=== PATIENT | male | born 1965 | race Caucasian/White ===

== ENCOUNTER 2016-10-20 17:46 | Inpatient (IN) | payer BC ==
[~2016-10-20] VITALS: Ht 188 cm; Wt 79.4 kg
[~2016-10-20 17:46] MED LIST: LEVAQUIN500 MG ORAL; PROMETHAZINE-C118 M1 ORAL
[2016-10-20] MEDS ORDERED: NKM (18:12)
--- NOTE | 2016-10-20 18:24 | Emergency Room Report ---
History of Present Illness General Chief Complaint: Abdominal Pain Source: Patient, Medical Record Present Illness HPI This is a 51-year-old male presented after increased lower abdominal pain for one day. Patient said that he had increased pain which is worse with ambulation and coughing. The patient had increased somewhat dysuria . The patient reports having some constipation for the past one week. Patient denied any vomiting. He denied any fever he reports having a good appetite. He states he last ate or drank approximately 3 hours prior to arrival. Allergies: Coded Allergies: BENZALKONIUM CHLORIDE (Verified Allergy, Unknown, 08/21/15) BIMATOPROST (Verified Allergy, Unknown, 08/21/15) TIMOLOL (Verified Allergy, Unknown, 08/21/15) TRAVOPROST (Verified Allergy, Unknown, 08/21/15) Uncoded Allergies: COMBZAN (Allergy, Unknown, 08/21/15) Patient History Past Medical History: see triage record Reviewed Nursing Documentation: PMH: Agreed, PSxH: Agreed Nursing Documentation-PMH Past Medical History: No History, Except For Hx Hypertension: No Hx Pacemaker: No Hx Asthma: No Hx COPD: No Hx Diabetes: No Hx Cancer: No Hx Gastrointestinal Problems: No Hx Dialysis: No Hx Neurological Problems: No Hx Cerebrovascular Accident: No Hx Seizures: No Review of Systems All Other Systems: negative except mentioned in HPI Physical Exam Vital Signs Date Time Temp Pulse Resp B/P Pulse Ox O2 Delivery O2 Flow Rate FiO2 10/20/16 18:06 97.3 105 16 141/96 99 Room Air Sp02 EP Interpretation: reviewed, normal General Appearance: normal inspection, well appearing, no apparent distress, alert, GCS 15 Head: atraumatic ENT: normal ENT inspection, hearing grossly normal, normal voice Neck: normal inspection, full range of motion, supple, no bony tend Respiratory: normal inspection, lungs clear, normal breath sounds, no respiratory distress, no retraction, no wheezing Cardiovascular #1: regular rate, rhythm, no edema Gastrointestinal: normal inspection, normal bowel sounds, soft, no guarding, no hernia, guarding, rebound, tenderness Genitourinary: no CVA tenderness Musculoskeletal: normal inspection, back normal, normal range of motion Neurologic: normal inspection, alert, oriented x3, responsive, 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 Differential diagnoses included ischemic bowel, appendicitis, perforated viscus, abdominal aortic aneurysm, inferior myocardial infarction, viral gastroenteritis Because of complexity of patient's case laboratory testing and imaging studies were ordered. The patient recently taken meloxicam without any improvement in the pain. The patient noted have exam consistent with appendicitis. CT imaging was ordered. Ct of abdomen and pelvis read by radiology showed no evidence of appendicitis.The patient was noted to have evidence of diverticulitis as well as right-sided sigmoid colonPatient was given IV antibiotics as well as IV fluids. Dr. Huber was contacted for inpatient management due to complexity of medical condition. Labs Test 10/20/16 18:24 White Blood Count 13.6 K/UL (4.8-10.8) Red Blood Count 4.34 M/UL (4.70-6.10) Hemoglobin 15.6 G/DL (14.2-18.0) Hematocrit 42.9 % (42.0-52.0) Mean Corpuscular Volume 99 FL (80-99) Mean Corpuscular Hemoglobin 36.0 PG (27.0-31.0) Mean Corpuscular Hemoglobin Concent 36.4 G/DL (32.0-36.0) Red Cell Distribution Width 11.0 % (11.6-14.8) Platelet Count 234 K/UL (150-450) Mean Platelet Volume 6.9 FL (6.5-10.1) Neutrophils (%) (Auto) 73.4 % (45.0-75.0) Lymphocytes (%) (Auto) 14.2 % (20.0-45.0) Monocytes (%) (Auto) 9.9 % (1.0-10.0) Eosinophils (%) (Auto) 1.9 % (0.0-3.0) Basophils (%) (Auto) 0.7 % (0.0-2.0) Prothrombin Time 10.0 SEC (9.30-11.50) Prothromb Time International Ratio 1.0 (0.9-1.1) Activated Partial Thromboplast Time 31 SEC (23-33) Urine Color Pale yellow Urine Appearance Clear Urine pH 7 (4.5-8.0) Urine Specific [place] 1.010 (1.005-1.035) Urine Protein Negative (NEGATIVE) Urine Glucose (UA) Negative (NEGATIVE) Urine Ketones Negative (NEGATIVE) Urine Occult Blood Negative (NEGATIVE) Urine Nitrite Negative (NEGATIVE) Urine Bilirubin Negative (NEGATIVE) Urine Urobilinogen Normal MG/DL (0.0-1.0) Urine Leukocyte Esterase Negative (NEGATIVE) Sodium Level 135 mEQ/L (135-145) Potassium Level 3.7 mEQ/L (3.4-4.9) Chloride Level 94 mEQ/L (98-107) Carbon Dioxide Level 28 mEQ/L (20-30) Anion Gap 13 (5-15) Blood Urea Nitrogen 11 mg/dL (7-23) Creatinine 0.9 mg/dL (0.7-1.2) Estimat Glomerular Filtration Rate > 60 mL/min (>60) Glucose Level 90 mg/dL (74-106) Calcium Level 9.4 mg/dL (8.6-10.2) Total Bilirubin 0.6 mg/dL (0.0-1.2) Aspartate Amino Transf (AST/SGOT) 15 U/L (5-40) Alanine Aminotransferase (ALT/SGPT) 18 U/L (3-41) Alkaline Phosphatase 62 U/L (40-129) Total Protein 7.2 g/dL (6.6-8.7) Albumin 4.1 g/dL (3.5-5.2) Globulin 3.1 g/dL Albumin/Globulin Ratio 1.3 (1.0-2.7) Lipase 22 U/L (< 60) Last Vital Signs Date Time Temp Pulse Resp B/P Pulse Ox O2 Delivery O2 Flow Rate FiO2 10/20/16 18:06 97.3 105 16 141/96 99 Room Air Status: unchanged Disposition: ADMITTED INPATIENT Condition: Serious Willie Sheridan October 20, 2016 18:24
[2016-10-20] MEDS ORDERED: Ampicillin/Sulbactam Sod 3 GM in NS 110 ML IVPB ONE (18:30)
[2016-10-20] MEDS ORDERED: Morphine Sulfate 4mg/ml Inj IVP ONE (18:30)
[2016-10-20 18:48] VITALS: BP 146/99
[2016-10-20 18:52] LABS: BASOPHILS % (AUTO) 0.7 % (0.0-2.0); EOSINOPHILS % (AUTO) 1.9 % (0.0-3.0); LYMPHOCYTES % (AUTO) 14.2 % (20.0-45.0); MEAN CORPUSCULAR HGB CONC 36.4 G/DL (32.0-36.0); MEAN CORPUSCULAR VOLUME 99 FL (80-99); MEAN PLATELET VOLUME 6.9 FL (6.5-10.1); MONOCYTES % (AUTO) 9.9 % (1.0-10.0); NEUTROPHILS % (AUTO) 73.4 % (45.0-75.0); PLATELET COUNT 234 K/UL (150-450); RED BLOOD COUNT 4.34 M/UL (4.70-6.10); WHITE BLOOD COUNT 13.6 K/UL (4.8-10.8)
[2016-10-20 18:53] LABS: APPEARANCE,URINE CLEAR; KETONES,URINE NEGATIVE (NEGATIVE); LEUKOCYTE ESTERASE ,URINE NEGATIVE (NEGATIVE); NITRITE,URINE NEGATIVE (NEGATIVE); PH,URINE 7 (4.5-8.0); PROTEIN,URINE NEGATIVE (NEGATIVE); UROBILINOGEN,URINE NORMAL MG/DL (0.0-1.0)
[2016-10-20 19:05] LABS: ALANINE AMINOTRANSFERASE 18 U/L (3-41); ALBUMIN/GLOBULIN RATIO 1.3 (1.0-2.7); ANION GAP 13 (5-15); ASPARTATE AMINO TRANSFERASE 15 U/L (5-40); CALCIUM 9.4 mg/dL (8.6-10.2); CARBON DIOXIDE 28 mEQ/L (20-30); CHLORIDE 94 mEQ/L (98-107); CREATININE 0.9 mg/dL (0.7-1.2); GLOMERULAR FILTRATION RATE > 60 mL/min (>60); HEMOLYSIS 8; LIPASE 22 U/L (< 60); POTASSIUM 3.7 mEQ/L (3.4-4.9); SODIUM 135 mEQ/L (135-145); TOTAL PROTEIN 7.2 g/dL (6.6-8.7)
[2016-10-20] MEDS ORDERED: Unasyn 3gm Inj ONE (19:57)
[2016-10-20 20:03] VITALS: BP 139/93
[2016-10-20] MEDS ORDERED: ACETAMINOPHEN-1 EAC1 ORAL (20:14)
[2016-10-20] MEDS ORDERED: MELOXICAM15 MG PO (20:14)
[2016-10-20] MEDS ORDERED: EMERGEN-C 1,01000 MG PO (20:14)
[2016-10-20] MEDS ORDERED: COSOPT PF EYE1 EAC1 OP (20:14)
[2016-10-20] MEDS ORDERED: ZIOPTAN 0.00151 EACH OP (20:14)
[2016-10-20] MEDS ORDERED: TYLENOL325 MG ORAL (20:20)
[2016-10-20] MEDS ORDERED: Nitroglycerin Subl 0.4mg tab (Bottle Of 25) SL PRN (21:45)
[2016-10-20] MEDS ORDERED: Mylanta II UD 30ml ORAL PRN (21:45)
[2016-10-20] MEDS ORDERED: Miralax 17gm pkt ORAL PRN (21:45)
[2016-10-20 22:06] VITALS: BP 140/80
[2016-10-20 22:31] VITALS: BP 136/87
[2016-10-20] MEDS: Morphine Sulfate 2mg/ml Inj IVP PRN (22:37)
[2016-10-20] MEDS: D5 1/2NS 1,000 ML IV SCH (23:41)
[2016-10-21] VITALS (7 sets, daily range): BP systolic 125–136; BP diastolic 80–86
[2016-10-21] MEDS: Piperacillin/Tazobactam 3.375 GM in D5W 110 ML IVPB SCH ×3 (01:30→18:15)
[2016-10-21] MEDS: Morphine Sulfate 2mg/ml Inj IVP PRN ×3 (04:41→22:17)
[2016-10-21 06:14] LABS: MEAN CORPUSCULAR HEMOGLOBIN 33.5 PG (27.0-31.0); MEAN CORPUSCULAR HGB CONC 34.3 G/DL (32.0-36.0); MEAN CORPUSCULAR VOLUME 98 FL (80-99); MEAN PLATELET VOLUME 6.9 FL (6.5-10.1); PLATELET COUNT 231 K/UL (150-450); RED BLOOD COUNT 4.38 M/UL (4.70-6.10); RED CELL DISTRIBUTION WIDTH 11.2 % (11.6-14.8); WHITE BLOOD COUNT 12.8 K/UL (4.8-10.8)
[2016-10-21 06:39] LABS: ALANINE AMINOTRANSFERASE 17 U/L (3-41); ALBUMIN/GLOBULIN RATIO 1.2 (1.0-2.7); AMYLASE 31 U/L (10-110); ANION GAP 13 (5-15); ASPARTATE AMINO TRANSFERASE 16 U/L (5-40); CARBON DIOXIDE 28 mEQ/L (20-30); CHLORIDE 95 mEQ/L (98-107); CREATININE 0.9 mg/dL (0.7-1.2); GLOMERULAR FILTRATION RATE > 60 mL/min (>60); HEMOLYSIS 4; LIPASE 21 U/L (< 60); POTASSIUM 3.8 mEQ/L (3.4-4.9); SODIUM 136 mEQ/L (135-145); TOTAL PROTEIN 6.7 g/dL (6.6-8.7)
[2016-10-21 07:05] LABS: BILIRUBIN,DIRECT 0.2 mg/dL (0.1-0.3)
[2016-10-21] MEDS ORDERED: Pantoprazole Inj IVP SCH (09:00)
--- NOTE | 2016-10-21 09:05 | Diagnostic Imaging Report ---
Indication: Chest pain Technique: Single portable AP view of the chest. Findings: Comparison: 08/21/2015 The bones and extra pulmonary soft tissues, cardiomediastinal silhouette, pulmonary vasculature and parenchyma, and pleural surfaces remain unremarkable. IMPRESSION: Negative portable AP chest, unchanged.
--- NOTE | 2016-10-21 09:05 | Diagnostic Imaging Report ---
Indications: Right lower quadrant abdominal pain Technique: Continuous helical CT imaging of the abdomen and pelvis was performed with automatic exposure control following administration of nonionic IV contrast only, on a Siemens sensation [address] scanner. Axial, coronal, sagittal images were reconstructed at 5 mm slice thickness. No oral contrast was administered per requesting physician's order, despite no contraindications listed in either submitted clinical data or tech note.. CTDI volume(s): 17 mGy Total DLP: 970 mGy-cm Findings: Comparison: None Lack of oral contrast limits evaluation of gastrointestinal tract, nondilated throughout. Appendix unremarkable. The sigmoid colon is redundant, extending anterior to the cecum and ascending colon. This segment demonstrates multiple diverticula, circumferential mural thickening, and significant surrounding mesenteric stranding. No extraluminal gas or fluid collections identified. Gallbladder absent. Surgical clips in gallbladder fossa. Bile ducts mildly prominent to level of ampulla of Vater apparently inserted within a 2.5 cm gas and fluid-filled duodenal diverticulum. Small circumscribed low attenuation foci in both renal cortices. Scattered arterial mural calcifications without obvious flow-limiting stenosis or occlusion. Apparent mild thickening of urinary bladder wall. Liver parenchyma, pancreas, spleen, adrenal glands, unopacified ureters, prostate, seminal vesicles, retroperitoneum, remainder of the mesentery, remainder visualized abdominopelvic anatomy unremarkable. Small irregular pleural-based linear densities and dependent portions of both lung bases. Small disc marginal osteophytes and lumbar spine. IMPRESSION: Findings compatible with acute diverticulitis of redundant sigmoid colon in the right lower quadrant. No evidence of associated obstruction, perforation, or abscess. No evidence of acute appendicitis. No other evidence of acute abdominopelvic disease, with limitation as described. Subtle but potentially significant abnormalities the gastrointestinal tract may be missed. Repeat CT scan with full oral and IV contrast preparation recommended for more complete evaluation, as clinically indicated Mild bilateral prominence likely secondary to previous cholecystectomy. Correlate clinically. Duodenal diverticulum Low-attenuation foci probably but not definitely cysts. Ultrasound correlation suggested. Apparent mild thickening of urinary bladder wall-underdistention versus hypertrophy versus cystitis Minimal pulmonary bibasal subsegmental atelectasis Mild degenerative spondylosis Findings discussed with Dr. Sheridan, ER physician, by telephone and written preliminary report placed in PACS oct 20 [id number]
[2016-10-21] MEDS: D5 1/2NS 1,000 ML IV SCH ×2 (11:20→22:48)
--- NOTE | 2016-10-21 15:10 | History and Physical ---
History of Present Illness General Date patient seen: October 21, 2016 Time patient seen: 14:30 Reason for Hospitalization: Abdominal Pain Present Illness HPI 51-year-old male without any significant PMH presented with lower abdominal pain for one day. pain worse with cough and ambulation pain described as cramping, colicky 7/10 on a scale 1 to 10, patient never had this pain before reported having constipation for one week. denied n/v/ no blood in stool, no black stools no fevers, chills workup in ED revealed leukocytosis -WBC-13.6 stable HH, lytes, LFT CT A/P revealed findings compatible with acute diverticulitis of redundant sigmoid colon in the right lower quadrant. No evidence of associated obstruction, perforation, or abscess. No evidence of acute appendicitis. No other evidence of acute abdominopelvic disease patient was admitted for further management Allergies: Coded Allergies: BENZALKONIUM CHLORIDE (Verified Allergy, Unknown, 08/21/15) BIMATOPROST (Verified Allergy, Unknown, 08/21/15) TIMOLOL (Verified Allergy, Unknown, 08/21/15) TRAVOPROST (Verified Allergy, Unknown, 08/21/15) Uncoded Allergies: COMBZAN (Allergy, Unknown, 08/21/15) Medication History Scheduled Dorzolamide/Timolol/Pf (Cosopt Pf Eye Drops), 1 EACH OP BID, (Reported) Meloxicam* (Meloxicam*), 15 MG PO DAILY, (Reported) Tafluprost/Pf (Zioptan 0.0015% Eye Drops), 1 EACH OP BEDTIME, (Reported) Scheduled PRN Acetaminophen (Tylenol), 325 MG ORAL Q6H PRN for Prn Pain/Headache/Temp > 101, ( Reported) Miscellaneous Medications Ascorbic Acid/Multivit-Min (Emergen-C 1,000 mg Packet), 1,000 MG PO, (Reported) Discontinued Medications Acetaminophen With Codeine (T#3) (Tylenol #3 Tab*), 2 TAB ORAL Q6H PRN for For Pain, (Reported) Discontinued Reason: Prescription changed Codeine/Promethazine Hcl* (Promethazine-Codeine Syrup*), 5 ML ORAL Q4H PRN for For Cough Discontinued Reason: Pt stopped taking med Levofloxacin* (Levaquin*), 500 MG ORAL DAILY Discontinued Reason: Pt stopped taking med No Known Medications* (NKM - No Known Medications*), 0 ., (Reported) Discontinued Reason: Pt stopped taking med Patient History History Provided By: Patient Healthcare decision maker NONE Resuscitation status Advanced Directive on File Review of Systems Constitutional: Reports: no symptoms Eye: Reports: other - hx glaucoma L eye ENT: Reports: hearing loss - hearing aide L ear, no symptoms Respiratory: Reports: no symptoms Cardiovascular: Reports: no symptoms Gastrointestinal: Reports: see HPI Genitourinary: Reports: no symptoms Musculoskeletal: Reports: no symptoms, other - hx of sciatica, s/p epiduaral injection Skin: Reports: no symptoms Neurological: Reports: no symptoms Endocrine: Reports: no symptoms Hematologic/Lymphatic: Reports: no symptoms Physical Exam General Appearance: WD/WN, no apparent distress, alert - A/A/O x 4 Lines, tubes and drains: peripheral HEENT: normocephalic, atraumatic, anicteric, other - decreased hearing left Neck: non-tender, supple, normal inspection Respiratory/Chest: lungs clear, no respiratory distress, no accessory muscle use Cardiovascular/Chest: normal peripheral pulses, normal rate, no JVD Abdomen: normal bowel sounds - TTP RLQ, soft Extremities: normal range of motion, non-tender, no calf tenderness, normal capillary refill Neurologic: 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 II-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 grossly normal, no motor/sensory deficits, alert, oriented x 3, responsive, normal mood/affect Musculoskeletal: normal muscle bulk Last 24 Hour Vital Signs Date Time Temp Pulse Resp B/P Pulse Ox O2 Delivery O2 Flow Rate FiO2 10/21/16 12:24 98.4 110 126/84 96 Room Air 10/21/16 12:00 98.4 10/21/16 10:38 101.8 10/21/16 10:09 100 20 134/84 96 Room Air 10/21/16 05:11 98.1 10/21/16 05:02 98.1 91 20 136/86 98 Room Air 10/21/16 04:10 98.1 91 20 136/86 98 Room Air 10/21/16 00:08 98.8 101 20 128/80 96 Room Air 10/20/16 22:31 97.7 100 20 136/87 97 Room Air 10/20/16 22:10 96 18 140/80 99 Room Air 10/20/16 22:06 97.8 96 18 140/80 99 Room Air 10/20/16 20:03 97.6 91 16 139/93 100 Room Air 10/20/16 19:02 97.6 10/20/16 18:48 97.3 93 16 146/99 99 Room Air 10/20/16 18:06 97.3 105 16 141/96 99 Room Air Intake and Output 10/20/16 10/21/16 19:00 07:00 Intake Total 535.0 ml Balance 535.0 ml Intake IV Total 535.0 ml # Voids 1 2 Laboratory Tests Test 10/20/16 18:24 10/21/16 04:50 White Blood Count 13.6 K/UL (4.8-10.8) H 12.8 K/UL (4.8-10.8) H Red Blood Count 4.34 M/UL (4.70-6.10) L 4.38 M/UL (4.70-6.10) L Hemoglobin 15.6 G/DL (14.2-18.0) 14.7 G/DL (14.2-18.0) Hematocrit 42.9 % (42.0-52.0) 42.9 % (42.0-52.0) Mean Corpuscular Volume 99 FL (80-99) 98 FL (80-99) Mean Corpuscular Hemoglobin 36.0 PG (27.0-31.0) H 33.5 PG (27.0-31.0) H Mean Corpuscular Hemoglobin Concent 36.4 G/DL (32.0-36.0) H 34.3 G/DL (32.0-36.0) Red Cell Distribution Width 11.0 % (11.6-14.8) L 11.2 % (11.6-14.8) L Platelet Count 234 K/UL (150-450) 231 K/UL (150-450) Mean Platelet Volume 6.9 FL (6.5-10.1) 6.9 FL (6.5-10.1) Neutrophils (%) (Auto) 73.4 % (45.0-75.0) % (45.0-75.0) Lymphocytes (%) (Auto) 14.2 % (20.0-45.0) L % (20.0-45.0) Monocytes (%) (Auto) 9.9 % (1.0-10.0) % (1.0-10.0) Eosinophils (%) (Auto) 1.9 % (0.0-3.0) % (0.0-3.0) Basophils (%) (Auto) 0.7 % (0.0-2.0) % (0.0-2.0) Prothrombin Time 10.0 SEC (9.30-11.50) Prothromb Time International Ratio 1.0 (0.9-1.1) Activated Partial Thromboplast Time 31 SEC (23-33) 32 SEC (23-33) Urine Color Pale yellow Urine Appearance Clear Urine pH 7 (4.5-8.0) Urine Specific [place] 1.010 (1.005-1.035) Urine Protein Negative (NEGATIVE) Urine Glucose (UA) Negative (NEGATIVE) Urine Ketones Negative (NEGATIVE) Urine Occult Blood Negative (NEGATIVE) Urine Nitrite Negative (NEGATIVE) Urine Bilirubin Negative (NEGATIVE) Urine Urobilinogen Normal MG/DL (0.0-1.0) Urine Leukocyte Esterase Negative (NEGATIVE) Sodium Level 135 mEQ/L (135-145) 136 mEQ/L (135-145) Potassium Level 3.7 mEQ/L (3.4-4.9) 3.8 mEQ/L (3.4-4.9) Chloride Level 94 mEQ/L (98-107) L 95 mEQ/L (98-107) L Carbon Dioxide Level 28 mEQ/L (20-30) 28 mEQ/L (20-30) Anion Gap 13 (5-15) 13 (5-15) Blood Urea Nitrogen 11 mg/dL (7-23) 7 mg/dL (7-23) Creatinine 0.9 mg/dL (0.7-1.2) 0.9 mg/dL (0.7-1.2) Estimat Glomerular Filtration Rate > 60 mL/min (>60) > 60 mL/min (>60) Glucose Level 90 mg/dL (74-106) 118 mg/dL (74-106) H Calcium Level 9.4 mg/dL (8.6-10.2) 9.0 mg/dL (8.6-10.2) Total Bilirubin 0.6 mg/dL (0.0-1.2) 1.2 mg/dL (0.0-1.2) Aspartate Amino Transf (AST/SGOT) 15 U/L (5-40) 16 U/L (5-40) Alanine Aminotransferase (ALT/SGPT) 18 U/L (3-41) 17 U/L (3-41) Alkaline Phosphatase 62 U/L (40-129) 61 U/L (40-129) Total Protein 7.2 g/dL (6.6-8.7) 6.7 g/dL (6.6-8.7) Albumin 4.1 g/dL (3.5-5.2) 3.7 g/dL (3.5-5.2) Globulin 3.1 g/dL 3.0 g/dL Albumin/Globulin Ratio 1.3 (1.0-2.7) 1.2 (1.0-2.7) Lipase 22 U/L (< 60) 21 U/L (< 60) Direct Bilirubin 0.2 mg/dL (0.1-0.3) Amylase Level 31 U/L (10-110) Height (Feet): 6 Height (Inches): 2.00 Weight (Pounds): 175 Medications Current Medications Medications (Trade) Dose Ordered Sig/Julia Route PRN Reason Start Time Stop Time Status Last Admin Dose Admin Acetaminophen (Tylenol) 650 mg Q4H PRN ORAL fever 10/20/16 21:45 11/19/16 21:44 10/21/16 10:43 Al Hydroxide/Mg Hydroxide (Mylanta II) 30 ml Q6H PRN ORAL dyspepsia 10/20/16 21:45 11/19/16 21:44 Dextrose STAT PRN IV Hypoglycemia 10/20/16 21:45 11/19/16 21:44 Dextrose/Sodium Chloride (D5 0.45% NS) 1,000 ml @ 75 mls/hr [id number] IV 10/20/16 22:00 11/19/16 21:59 10/20/16 23:41 Diphenhydramine HCl (Benadryl) 25 mg Q6H PRN ORAL Itching/Pruritis 10/20/16 21:45 11/19/16 21:44 Heparin Sodium (Porcine) (Heparin 5000 units/ml) 5,000 units EVERY 12 HOURS SUBQ 10/21/16 22:00 6/19/17 21:59 Morphine Sulfate (Morphine Sulfate) 2 mg Q4H PRN IVP severe Pain (Pain Scale 7-10) 10/20/16 21:45 10/27/16 21:44 10/21/16 10:22 Nitroglycerin (Ntg) 0.4 mg Q5M X 3 DOSES PRN SL Prn Chest Pain 10/20/16 21:45 11/19/16 21:44 Ondansetron HCl (Zofran) 4 mg Q6H PRN IVP Nausea & Vomiting 10/20/16 21:45 11/19/16 21:44 Piperacillin Sod/ Tazobactam Sod/ Dextrose (Zosyn/D5W) 110 ml @ 27.5 mls/hr Q8HR@0200,1000,1800 IVPB 10/21/16 02:00 10/28/16 01:59 10/21/16 10:27 Polyethylene Glycol (Miralax) 17 gm HSPRN PRN ORAL Constipation 10/20/16 21:45 11/19/16 21:44 Temazepam (Restoril) 15 mg HSPRN PRN ORAL Insomnia 10/20/16 21:45 10/27/16 21:44 Assessment/Plan Assessment/Plan ASSESSMENT acute diverticulitis abdominal pain ( 2 to diverticulitis) constipation decreased hearing PLAN OF CARE [facility] floor IVF NPO GI consult started on CL diet as tolerated empiric abx ID consult pain management DVT prophylaxis bowel regimen case discussed and evaluated by supervising physician Saranya Dotson NP ([facility]) October 21, 2016 15:10
--- NOTE | 2016-10-21 19:31 | Consultation ---
DATE OF CONSULTATION: 10/21/2016 GASTROENTEROLOGY CONSULTATION CHIEF COMPLAINT: Abdominal pain. HISTORY OF PRESENT ILLNESS: The patient is admitted to the hospital with complaint of one-day of severe abdominal pain associated with nausea, chills, and headache in the ER. The patient had a CT of the abdomen and pelvis showed evidence of acute diverticulitis without any abscess or perforation. According to the patient, last colonoscopy was about years ago. PAST MEDICAL HISTORY: 1. Left eye glaucoma. 2. History of herniated disk. 3. Hearing-aid on the left ear. 4. Allergy to benzalkonium chloride and bimatoprost. 5. Compazine. 6. Timolol. 7. Travoprost. PAST SURGICAL HISTORY: Cholecystectomy. MEDICATIONS: Please see medication reconciliation list. SOCIAL HISTORY: The patient denies any tobacco, alcohol, or drug abuse. REVIEW OF SYSTEMS: A 10-point review of system was performed and pertinent positives in history of present illness. PHYSICAL EXAMINATION: GENERAL: This is a well-developed male, in no acute distress. VITAL SIGNS: Temperature 98.1 degrees, pulse 90, respirations 20, and blood pressure 132/86. HEENT: Normocephalic and atraumatic. Sclerae anicteric. NECK: Supple. No evidence of lymphadenopathy. CARDIOVASCULAR: Regular rhythm. Plus S1 and S2. No murmurs. Abdomen: Soft. There is tenderness to palpation in the right lower quadrant. 01:48 No rebound. No guarding. No peritoneal sign. EXTREMITIES: No cyanosis. No clubbing. No edema. LABORATORY DATA: White count is 12.8, hemoglobin 14, hematocrit 42, and platelets are 231,000. ASSESSMENT: This is a 51-year-old male with acute diverticulitis. PLAN: To give pain him medication, give him antibiotics, discontinue Protonix, started clear liquid diet, daily examination. The patient will need an outpatient colonoscopy in 6 to 8 weeks. I want to thank, Dr. Nazia Huber, for this kind referral. Reinier Fields M.D. DR: Cam JOB#: [id number] CC: Nazia Huber M.D.; Fax#: [phone]
[2016-10-21] MEDS: Heparin 5000 units/ml inj SUBQ SCH (22:00)
[2016-10-22 00:11] VITALS: BP 129/73
[2016-10-22] MEDS: Piperacillin/Tazobactam 3.375 GM in D5W 110 ML IVPB SCH ×3 (01:54→17:44)
[2016-10-22 04:00] VITALS: BP 107/74
[2016-10-22 07:09] LABS: ANION GAP 12 (5-15); CALCIUM 8.7 mg/dL (8.6-10.2); CARBON DIOXIDE 29 mEQ/L (20-30); CHLORIDE 101 mEQ/L (98-107); CREATININE 0.8 mg/dL (0.7-1.2); GLOMERULAR FILTRATION RATE > 60 mL/min (>60); HEMOLYSIS 2; POTASSIUM 3.6 mEQ/L (3.4-4.9); SODIUM 142 mEQ/L (135-145)
[2016-10-22 07:16] LABS: BASOPHILS % (AUTO) 0.6 % (0.0-2.0); EOSINOPHILS % (AUTO) 2.4 % (0.0-3.0); LYMPHOCYTES % (AUTO) 18.1 % (20.0-45.0); MEAN CORPUSCULAR HEMOGLOBIN 33.5 PG (27.0-31.0); MEAN CORPUSCULAR HGB CONC 34.7 G/DL (32.0-36.0); MEAN CORPUSCULAR VOLUME 97 FL (80-99); MEAN PLATELET VOLUME 6.9 FL (6.5-10.1); MONOCYTES % (AUTO) 9.7 % (1.0-10.0); NEUTROPHILS % (AUTO) 69.2 % (45.0-75.0); PLATELET COUNT 203 K/UL (150-450); RED BLOOD COUNT 4.01 M/UL (4.70-6.10); RED CELL DISTRIBUTION WIDTH 10.8 % (11.6-14.8)
--- NOTE | 2016-10-22 07:38 | General Progress Note ---
Assessment/Plan Problem List: (1) Diverticulitis ICD Codes: K57.92 - Diverticulitis of intestine, part unspecified, without perforation or abscess without bleeding SNOMED: [id number] Assessment/Plan advance to full liquid iv abx fu labs out patient colonoscopy in 8 weeks Subjective ROS Limited/Unobtainable: Yes Allergies: Coded Allergies: BENZALKONIUM CHLORIDE (Verified Allergy, Unknown, 08/21/15) BIMATOPROST (Verified Allergy, Unknown, 08/21/15) TIMOLOL (Verified Allergy, Unknown, 08/21/15) TRAVOPROST (Verified Allergy, Unknown, 08/21/15) Uncoded Allergies: COMBZAN (Allergy, Unknown, 08/21/15) Subjective pain is improving Objective Last 24 Hour Vital Signs Date Time Temp Pulse Resp B/P Pulse Ox O2 Delivery O2 Flow Rate FiO2 10/22/16 04:00 97.5 74 18 107/74 100 Room Air 10/22/16 00:11 97.3 77 18 129/73 99 Room Air 10/21/16 22:47 98.6 10/21/16 22:16 98.6 10/21/16 20:29 100.0 98 18 128/82 96 Room Air 10/21/16 18:29 99.3 10/21/16 17:00 100.0 100 18 125/82 97 Room Air 10/21/16 12:24 98.4 110 126/84 96 Room Air 10/21/16 10:38 101.8 10/21/16 10:09 100 20 134/84 96 Room Air Intake and Output 10/21/16 10/22/16 19:00 07:00 Intake Total 1500 ml 1165.0 ml Balance 1500 ml 1165.0 ml Intake Oral 900 ml 120 ml IV Total 600 ml 1045.0 ml # Voids 3 2 Laboratory Tests 10/22/16 05:10: White Blood Count 6.0#, Red Blood Count 4.01L, Hemoglobin 13.5L, Hematocrit 38.8L, Mean Corpuscular Volume 97, Mean Corpuscular Hemoglobin 33.5H, Mean Corpuscular Hemoglobin Concent 34.7, Red Cell Distribution Width 10.8L, Platelet Count 203, Mean Platelet Volume 6.9, Neutrophils (%) (Auto) 69.2, Lymphocytes (%) (Auto) 18.1L, Monocytes (%) (Auto) 9.7, Eosinophils (%) (Auto) 2.4, Basophils (%) (Auto) 0.6, Sodium Level 142, Potassium Level 3.6, Chloride Level 101, Carbon Dioxide Level 29, Anion Gap 12, Blood Urea Nitrogen 6L, Creatinine 0.8, Estimat Glomerular Filtration Rate > 60, Glucose Level 114H, Calcium Level 8.7 Height (Feet): 6 Height (Inches): 2.00 Weight (Pounds): 175 General Appearance: alert EENT: normal ENT inspection Neck: supple Cardiovascular: normal rate Respiratory/Chest: lungs clear Abdomen: soft, tender Extremities: non-tender TIMMY PLEITEZ October 22, 2016 07:38
[2016-10-22 08:00] VITALS: BP 134/84
[2016-10-22] MEDS: Morphine Sulfate 2mg/ml Inj IVP PRN ×2 (09:11→21:14)
[2016-10-22] MEDS: Heparin 5000 units/ml inj SUBQ SCH ×2 (09:20→21:06)
--- NOTE | 2016-10-22 11:10 | Infectious Diseases Prog Note ---
Assessment/Plan Assessment/Plan Id consult dictated # [id number] Subjective Allergies: Coded Allergies: BENZALKONIUM CHLORIDE (Verified Allergy, Unknown, 08/21/15) BIMATOPROST (Verified Allergy, Unknown, 08/21/15) TIMOLOL (Verified Allergy, Unknown, 08/21/15) TRAVOPROST (Verified Allergy, Unknown, 08/21/15) Uncoded Allergies: COMBZAN (Allergy, Unknown, 08/21/15) Objective Vital Signs Last 24 Hour Vital Signs Date Time Temp Pulse Resp B/P Pulse Ox O2 Delivery O2 Flow Rate FiO2 10/22/16 08:00 97.7 87 20 134/84 96 Room Air 10/22/16 04:00 97.5 74 18 107/74 100 Room Air 10/22/16 00:11 97.3 77 18 129/73 99 Room Air 10/21/16 22:47 98.6 10/21/16 22:16 98.6 10/21/16 20:29 100.0 98 18 128/82 96 Room Air 10/21/16 18:29 99.3 10/21/16 17:00 100.0 100 18 125/82 97 Room Air 10/21/16 12:24 98.4 110 126/84 96 Room Air Height (Feet): 6 Height (Inches): 2.00 Weight (Pounds): 175 Laboratory Tests Test 10/22/16 05:10 White Blood Count 6.0 K/UL (4.8-10.8) # Red Blood Count 4.01 M/UL (4.70-6.10) L Hemoglobin 13.5 G/DL (14.2-18.0) L Hematocrit 38.8 % (42.0-52.0) L Mean Corpuscular Volume 97 FL (80-99) Mean Corpuscular Hemoglobin 33.5 PG (27.0-31.0) H Mean Corpuscular Hemoglobin Concent 34.7 G/DL (32.0-36.0) Red Cell Distribution Width 10.8 % (11.6-14.8) L Platelet Count 203 K/UL (150-450) Mean Platelet Volume 6.9 FL (6.5-10.1) Neutrophils (%) (Auto) 69.2 % (45.0-75.0) Lymphocytes (%) (Auto) 18.1 % (20.0-45.0) L Monocytes (%) (Auto) 9.7 % (1.0-10.0) Eosinophils (%) (Auto) 2.4 % (0.0-3.0) Basophils (%) (Auto) 0.6 % (0.0-2.0) Sodium Level 142 mEQ/L (135-145) Potassium Level 3.6 mEQ/L (3.4-4.9) Chloride Level 101 mEQ/L (98-107) Carbon Dioxide Level 29 mEQ/L (20-30) Anion Gap 12 (5-15) Blood Urea Nitrogen 6 mg/dL (7-23) L Creatinine 0.8 mg/dL (0.7-1.2) Estimat Glomerular Filtration Rate > 60 mL/min (>60) Glucose Level 114 mg/dL (74-106) H Calcium Level 8.7 mg/dL (8.6-10.2) Current Medications Medications (Trade) Dose Ordered Sig/Julia Route PRN Reason Start Time Stop Time Status Last Admin Dose Admin Acetaminophen (Tylenol) 650 mg Q4H PRN ORAL Fever/Headache/Mild Pain 10/22/16 01:45 11/21/16 01:44 Al Hydroxide/Mg Hydroxide (Mylanta II) 30 ml Q6H PRN ORAL dyspepsia 10/20/16 21:45 11/19/16 21:44 Dextrose STAT PRN IV Hypoglycemia 10/20/16 21:45 11/19/16 21:44 Dextrose/Sodium Chloride (D5 0.45% NS) 1,000 ml @ 75 mls/hr [id number] IV 10/20/16 22:00 11/19/16 21:59 10/21/16 22:48 Diphenhydramine HCl (Benadryl) 25 mg Q6H PRN ORAL Itching/Pruritis 10/20/16 21:45 11/19/16 21:44 Heparin Sodium (Porcine) (Heparin 5000 units/ml) 5,000 units EVERY 12 HOURS SUBQ 10/21/16 22:00 11/20/16 21:59 10/22/16 09:20 Morphine Sulfate (Morphine Sulfate) 2 mg Q4H PRN IVP severe Pain (Pain Scale 7-10) 10/20/16 21:45 10/27/16 21:44 10/22/16 09:11 Nitroglycerin (Ntg) 0.4 mg Q5M X 3 DOSES PRN SL Prn Chest Pain 10/20/16 21:45 11/19/16 21:44 Ondansetron HCl (Zofran) 4 mg Q6H PRN IVP Nausea & Vomiting 10/20/16 21:45 11/19/16 21:44 Piperacillin Sod/ Tazobactam Sod/ Dextrose (Zosyn/D5W) 110 ml @ 27.5 mls/hr Q8HR@0200,1000,1800 IVPB 10/21/16 02:00 10/28/16 01:59 10/22/16 09:11 Polyethylene Glycol (Miralax) 17 gm HSPRN PRN ORAL Constipation 10/20/16 21:45 11/19/16 21:44 Temazepam (Restoril) 15 mg HSPRN PRN ORAL Insomnia 10/20/16 21:45 10/27/16 21:44 DAI ANTON October 22, 2016 11:10
--- NOTE | 2016-10-22 11:15 | Pulmonology Progress Note ---
Assessment/Plan Assessment/Plan ASSESSMENT acute diverticulitis abdominal pain ( 2 to diverticulitis) constipation decreased hearing PLAN OF CARE [facility] floor IVF cleared liquids as tolerated GI consult noted and appreciated empiric abx ID consult noted and appreciated pain management DVT prophylaxis bowel regimen dietary eval for low residue diet x next 3-4- weeks, then high fiver diet and deit for diverticular disease case discussed and evaluated by supervising physician Subjective Allergies: Coded Allergies: BENZALKONIUM CHLORIDE (Verified Allergy, Unknown, 08/21/15) BIMATOPROST (Verified Allergy, Unknown, 08/21/15) TIMOLOL (Verified Allergy, Unknown, 08/21/15) TRAVOPROST (Verified Allergy, Unknown, 08/21/15) Uncoded Allergies: COMBZAN (Allergy, Unknown, 08/21/15) Subjective leukocytosis resolved, afebrile still with abdominal pain RLQ no n/v/ tolerates CK diet Objective Last 24 Hour Vital Signs Date Time Temp Pulse Resp B/P Pulse Ox O2 Delivery O2 Flow Rate FiO2 10/22/16 08:00 97.7 87 20 134/84 96 Room Air 10/22/16 04:00 97.5 74 18 107/74 100 Room Air 10/22/16 00:11 97.3 77 18 129/73 99 Room Air 10/21/16 22:47 98.6 10/21/16 22:16 98.6 10/21/16 20:29 100.0 98 18 128/82 96 Room Air 10/21/16 18:29 99.3 10/21/16 17:00 100.0 100 18 125/82 97 Room Air 10/21/16 12:24 98.4 110 126/84 96 Room Air Intake and Output 10/21/16 10/22/16 19:00 07:00 Intake Total 1500 ml 1165.0 ml Balance 1500 ml 1165.0 ml Intake Oral 900 ml 120 ml IV Total 600 ml 1045.0 ml # Voids 3 2 Objective General Appearance: WD/WN, no apparent distress, alert - A/A/O x 4 Lines, tubes and drains: peripheral HEENT: normocephalic, atraumatic, anicteric, decreased hearing left Neck: non-tender, supple, normal inspection Respiratory/Chest: lungs clear, no respiratory distress, no accessory muscle use Cardiovascular/Chest: normal peripheral pulses, normal rate, no JVD Abdomen: normal bowel sounds, abdomen soft, nondistended, TTP RLQ, no rebound , no guarding, Extremities: normal range of motion, non-tender, no calf tenderness, normal capillary refill Neurologic: recharger II-XII grossly normal, no motor/sensory deficits, alert, oriented x 3, responsive, normal mood/affect Musculoskeletal: normal muscle bulk Laboratory Tests 10/22/16 05:10: White Blood Count 6.0#, Red Blood Count 4.01L, Hemoglobin 13.5L, Hematocrit 38.8L, Mean Corpuscular Volume 97, Mean Corpuscular Hemoglobin 33.5H, Mean Corpuscular Hemoglobin Concent 34.7, Red Cell Distribution Width 10.8L, Platelet Count 203, Mean Platelet Volume 6.9, Neutrophils (%) (Auto) 69.2, Lymphocytes (%) (Auto) 18.1L, Monocytes (%) (Auto) 9.7, Eosinophils (%) (Auto) 2.4, Basophils (%) (Auto) 0.6, Sodium Level 142, Potassium Level 3.6, Chloride Level 101, Carbon Dioxide Level 29, Anion Gap 12, Blood Urea Nitrogen 6L, Creatinine 0.8, Estimat Glomerular Filtration Rate > 60, Glucose Level 114H, Calcium Level 8.7 Current Medications Medications (Trade) Dose Ordered Sig/Julia Route PRN Reason Start Time Stop Time Status Last Admin Dose Admin Acetaminophen (Tylenol) 650 mg Q4H PRN ORAL Fever/Headache/Mild Pain 10/22/16 01:45 11/21/16 01:44 Al Hydroxide/Mg Hydroxide (Mylanta II) 30 ml Q6H PRN ORAL dyspepsia 10/20/16 21:45 11/19/16 21:44 Dextrose STAT PRN IV Hypoglycemia 10/20/16 21:45 11/19/16 21:44 Dextrose/Sodium Chloride (D5 0.45% NS) 1,000 ml @ 75 mls/hr [id number] IV 10/20/16 22:00 11/19/16 21:59 10/21/16 22:48 Diphenhydramine HCl (Benadryl) 25 mg Q6H PRN ORAL Itching/Pruritis 10/20/16 21:45 11/19/16 21:44 Heparin Sodium (Porcine) (Heparin 5000 units/ml) 5,000 units EVERY 12 HOURS SUBQ 10/21/16 22:00 11/20/16 21:59 10/22/16 09:20 Morphine Sulfate (Morphine Sulfate) 2 mg Q4H PRN IVP severe Pain (Pain Scale 7-10) 10/20/16 21:45 10/27/16 21:44 10/22/16 09:11 Nitroglycerin (Ntg) 0.4 mg Q5M X 3 DOSES PRN SL Prn Chest Pain 10/20/16 21:45 11/19/16 21:44 Ondansetron HCl (Zofran) 4 mg Q6H PRN IVP Nausea & Vomiting 10/20/16 21:45 11/19/16 21:44 Piperacillin Sod/ Tazobactam Sod/ Dextrose (Zosyn/D5W) 110 ml @ 27.5 mls/hr Q8HR@0200,1000,1800 IVPB 10/21/16 02:00 10/28/16 01:59 10/22/16 09:11 Polyethylene Glycol (Miralax) 17 gm HSPRN PRN ORAL Constipation 10/20/16 21:45 11/19/16 21:44 Temazepam (Restoril) 15 mg HSPRN PRN ORAL Insomnia 10/20/16 21:45 10/27/16 21:44 Mauri OrlandoSaranya nieto NP October 22, 2016 11:15
[2016-10-22 12:00] VITALS: BP 116/88
[2016-10-22] MEDS: D5 1/2NS 1,000 ML IV SCH (13:04)
[2016-10-22] MEDS ORDERED: Tubing IV Secondary IV ONE (14:17)
[2016-10-22] MEDS ORDERED: D5 1/2NS 1000ml IV ONE (14:17)
[2016-10-22 16:00] VITALS: BP 131/79
[2016-10-22 20:00] VITALS: BP 147/96
--- NOTE | 2016-10-22 20:30 | Consultation ---
DATE OF CONSULTATION: 10/22/2016 This consult is for coverage of Dr. Briggs. PRIMARY ATTENDING PHYSICIAN: Nazia Huber M.D. REASON FOR CONSULTATION: Diverticulitis. HISTORY OF PRESENT ILLNESS: The patient is a 51-year-old white male admitted on 10/20/2016 complaining of lower abdominal pain in right side. Pain was colicky, 7/10. The patient has constipation for a week, subjective fever, in the hospital highest fever was 101.8. PAST MEDICAL HISTORY: Significant for left eye glaucoma. The patient has history of cholecystectomy. MEDICATIONS: Tylenol, heparin, Zosyn, morphine, MiraLAX, Zofran, Restoril, Mylanta, enalapril. ALLERGIES: Timolol, travoprost, . REVIEW OF SYSTEMS: No nausea or vomiting, has abdominal pain. The patient started to have liquid diet today. No problem passing urine. No coughing. PHYSICAL EXAMINATION: GENERAL APPEARANCE: No acute distress. Awake, alert, and oriented x3 VITAL SIGNS: Temperature 97.7 degrees, pulse 87, blood pressure 134/84. HEAD AND NECK: [place] conjunctivae. No oral lesions. HEART: S1 and S2. Regular. LUNGS: Clear. ABDOMEN: Soft. Mild tenderness in the right lower quadrant. EXTREMITIES: No edema. LABORATORY AND DIAGNOSTIC DATA: WBC 6 coming down from 13.6 at the time of admission, hemoglobin 13.5 and hematocrit 38.8, platelets 203,000. Sodium 142, potassium 3.6, chloride 101, bicarbonate 29, BUN 6, creatinine 0.8. CT scan of the abdomen and pelvis showed acute diverticulitis in the sigmoid colon and right lower quadrant, no evidence of obstruction or perforation. IMPRESSION: 1. Acute diverticulitis. The patient is responding to antibiotic treatment. 2. Fever that is improving. 3. Leukocytosis that is resolved. RECOMMENDATIONS: Continue Zosyn in the hospital. At the time of admission we will switch to p.o. antibiotics Levaquin and Flagyl. At the end of my exam, I thank Dr. Huber for involving me in the care of this patient. Sai Bill M.D. DR: Princess JOB#: [id number] CC:
[2016-10-23] VITALS: BP 119/75
[2016-10-23] MEDS: D5 1/2NS 1,000 ML IV SCH (00:55)
[2016-10-23] MEDS: Piperacillin/Tazobactam 3.375 GM in D5W 110 ML IVPB SCH ×2 (02:17→10:09)
[2016-10-23 04:00] VITALS: BP 124/83
[2016-10-23 06:53] LABS: BASOPHILS % (AUTO) 1.2 % (0.0-2.0); EOSINOPHILS % (AUTO) 6.1 % (0.0-3.0); LYMPHOCYTES % (AUTO) 38.5 % (20.0-45.0); MEAN CORPUSCULAR HEMOGLOBIN 32.8 PG (27.0-31.0); MEAN CORPUSCULAR HGB CONC 34.3 G/DL (32.0-36.0); MEAN CORPUSCULAR VOLUME 96 FL (80-99); MEAN PLATELET VOLUME 6.8 FL (6.5-10.1); MONOCYTES % (AUTO) 13.4 % (1.0-10.0); NEUTROPHILS % (AUTO) 40.9 % (45.0-75.0); PLATELET COUNT 228 K/UL (150-450); RED BLOOD COUNT 3.94 M/UL (4.70-6.10); RED CELL DISTRIBUTION WIDTH 10.7 % (11.6-14.8); WHITE BLOOD COUNT 4.4 K/UL (4.8-10.8)
[2016-10-23 07:41] LABS: ANION GAP 12 (5-15); CALCIUM 8.9 mg/dL (8.6-10.2); CARBON DIOXIDE 30 mEQ/L (20-30); CHLORIDE 100 mEQ/L (98-107); CREATININE 0.9 mg/dL (0.7-1.2); GLOMERULAR FILTRATION RATE > 60 mL/min (>60); HEMOLYSIS 10; POTASSIUM 3.5 mEQ/L (3.4-4.9); SODIUM 142 mEQ/L (135-145)
[2016-10-23 08:08] VITALS: BP 128/80
[2016-10-23] MEDS: Heparin 5000 units/ml inj SUBQ SCH (09:00)
--- NOTE | 2016-10-23 09:44 | Infectious Diseases Prog Note ---
Assessment/Plan Assessment/Plan A: The patient is a 51-year-old M leukocytosis , SP Diverticulitis CT : acute diverticulitis in the sigmoid colon and right lower quadrant Lower abdominal pain (Rt) Fever,SP Left eye glaucoma hx of cholecystectomy P: Continue Zosyn d# 3/ 10 , upon DC will change to Levaquin and Flagyl to complete the course Monitor CBC Monitor BMP Monitor Cxray GI is Following : out patient colonoscopy in 8 week Subjective Allergies: Coded Allergies: BENZALKONIUM CHLORIDE (Verified Allergy, Unknown, 08/21/15) BIMATOPROST (Verified Allergy, Unknown, 08/21/15) TIMOLOL (Verified Allergy, Unknown, 08/21/15) TRAVOPROST (Verified Allergy, Unknown, 08/21/15) Uncoded Allergies: COMBZAN (Allergy, Unknown, 08/21/15) Objective Vital Signs Last 24 Hour Vital Signs Date Time Temp Pulse Resp B/P Pulse Ox O2 Delivery O2 Flow Rate FiO2 10/23/16 08:08 98.1 77 20 128/80 99 Room Air 10/23/16 04:00 97.9 67 18 124/83 97 Room Air 10/23/16 00:00 97.2 68 18 119/75 99 Room Air 10/22/16 21:44 97.9 10/22/16 20:00 97.5 70 18 147/96 98 Room Air 10/22/16 16:00 97.9 84 18 131/79 98 Room Air 10/22/16 12:00 97.6 83 20 116/88 97 Room Air Height (Feet): 6 Height (Inches): 2.00 Weight (Pounds): 175 Laboratory Tests Test 10/23/16 06:05 White Blood Count 4.4 K/UL (4.8-10.8) L Red Blood Count 3.94 M/UL (4.70-6.10) L Hemoglobin 12.9 G/DL (14.2-18.0) L Hematocrit 37.7 % (42.0-52.0) L Mean Corpuscular Volume 96 FL (80-99) Mean Corpuscular Hemoglobin 32.8 PG (27.0-31.0) H Mean Corpuscular Hemoglobin Concent 34.3 G/DL (32.0-36.0) Red Cell Distribution Width 10.7 % (11.6-14.8) L Platelet Count 228 K/UL (150-450) Mean Platelet Volume 6.8 FL (6.5-10.1) Neutrophils (%) (Auto) 40.9 % (45.0-75.0) L Lymphocytes (%) (Auto) 38.5 % (20.0-45.0) Monocytes (%) (Auto) 13.4 % (1.0-10.0) H Eosinophils (%) (Auto) 6.1 % (0.0-3.0) H Basophils (%) (Auto) 1.2 % (0.0-2.0) Sodium Level 142 mEQ/L (135-145) Potassium Level 3.5 mEQ/L (3.4-4.9) Chloride Level 100 mEQ/L (98-107) Carbon Dioxide Level 30 mEQ/L (20-30) Anion Gap 12 (5-15) Blood Urea Nitrogen 4 mg/dL (7-23) L Creatinine 0.9 mg/dL (0.7-1.2) Estimat Glomerular Filtration Rate > 60 mL/min (>60) Glucose Level 108 mg/dL (74-106) H Calcium Level 8.9 mg/dL (8.6-10.2) Current Medications Medications (Trade) Dose Ordered Sig/Julia Route PRN Reason Start Time Stop Time Status Last Admin Dose Admin Acetaminophen (Tylenol) 650 mg Q4H PRN ORAL Fever/Headache/Mild Pain 10/22/16 01:45 11/21/16 01:44 Al Hydroxide/Mg Hydroxide (Mylanta II) 30 ml Q6H PRN ORAL dyspepsia 10/20/16 21:45 11/19/16 21:44 Dextrose STAT PRN IV Hypoglycemia 10/20/16 21:45 11/19/16 21:44 Dextrose/Sodium Chloride (D5 0.45% NS) 1,000 ml @ 75 mls/hr [id number] IV 10/20/16 22:00 11/19/16 21:59 10/23/16 00:55 Diphenhydramine HCl (Benadryl) 25 mg Q6H PRN ORAL Itching/Pruritis 10/20/16 21:45 11/19/16 21:44 Heparin Sodium (Porcine) (Heparin 5000 units/ml) 5,000 units EVERY 12 HOURS SUBQ 10/21/16 22:00 11/20/16 21:59 10/22/16 21:06 Morphine Sulfate (Morphine Sulfate) 2 mg Q4H PRN IVP severe Pain (Pain Scale 7-10) 10/20/16 21:45 10/27/16 21:44 10/22/16 21:14 Nitroglycerin (Ntg) 0.4 mg Q5M X 3 DOSES PRN SL Prn Chest Pain 10/20/16 21:45 11/19/16 21:44 Ondansetron HCl (Zofran) 4 mg Q6H PRN IVP Nausea & Vomiting 10/20/16 21:45 11/19/16 21:44 Piperacillin Sod/ Tazobactam Sod/ Dextrose (Zosyn/D5W) 110 ml @ 27.5 mls/hr Q8HR@0200,1000,1800 IVPB 10/21/16 02:00 10/28/16 01:59 10/23/16 02:17 Polyethylene Glycol (Miralax) 17 gm HSPRN PRN ORAL Constipation 10/20/16 21:45 11/19/16 21:44 Temazepam (Restoril) 15 mg HSPRN PRN ORAL Insomnia 10/20/16 21:45 10/27/16 21:44 10/23/16 00:54 SYDNIE DOMINGO M.D. October 23, 2016 09:44
--- NOTE | 2016-10-23 11:01 | GI Progress Note ---
Assessment/Plan Problems: (1) Acute abdominal pain ICD Codes: R10.9 - Unspecified abdominal pain SNOMED: 522900743 (2) Diverticulitis ICD Codes: K57.92 - Diverticulitis of intestine, part unspecified, without perforation or abscess without bleeding SNOMED: 718232849 Status: stable Status Narrative Discussed with Dr. Fields. Assessment/Plan ok for DC per GI if patient tolerates soft diet iv abx pain mgmt fu labs out patient colonoscopy in 8 weeks Subjective Gastrointestinal/Abdominal: Reports: abdominal pain - improving Objective Last 24 Hour Vital Signs Date Time Temp Pulse Resp B/P Pulse Ox O2 Delivery O2 Flow Rate FiO2 10/23/16 08:08 98.1 77 20 128/80 99 Room Air 10/23/16 04:00 97.9 67 18 124/83 97 Room Air 10/23/16 00:00 97.2 68 18 119/75 99 Room Air 10/22/16 21:44 97.9 10/22/16 20:00 97.5 70 18 147/96 98 Room Air 10/22/16 16:00 97.9 84 18 131/79 98 Room Air 10/22/16 12:00 97.6 83 20 116/88 97 Room Air Intake and Output 10/22/16 10/23/16 19:00 07:00 Intake Total 995.0 ml 1385.0 ml Balance 995.0 ml 1385.0 ml Intake Oral 360 ml 450 ml IV Total 635.0 ml 935.0 ml # Voids 3 3 # Bowel Movements 1 Laboratory Tests Test 10/23/16 06:05 White Blood Count 4.4 K/UL (4.8-10.8) L Red Blood Count 3.94 M/UL (4.70-6.10) L Hemoglobin 12.9 G/DL (14.2-18.0) L Hematocrit 37.7 % (42.0-52.0) L Mean Corpuscular Volume 96 FL (80-99) Mean Corpuscular Hemoglobin 32.8 PG (27.0-31.0) H Mean Corpuscular Hemoglobin Concent 34.3 G/DL (32.0-36.0) Red Cell Distribution Width 10.7 % (11.6-14.8) L Platelet Count 228 K/UL (150-450) Mean Platelet Volume 6.8 FL (6.5-10.1) Neutrophils (%) (Auto) 40.9 % (45.0-75.0) L Lymphocytes (%) (Auto) 38.5 % (20.0-45.0) Monocytes (%) (Auto) 13.4 % (1.0-10.0) H Eosinophils (%) (Auto) 6.1 % (0.0-3.0) H Basophils (%) (Auto) 1.2 % (0.0-2.0) Sodium Level 142 mEQ/L (135-145) Potassium Level 3.5 mEQ/L (3.4-4.9) Chloride Level 100 mEQ/L (98-107) Carbon Dioxide Level 30 mEQ/L (20-30) Anion Gap 12 (5-15) Blood Urea Nitrogen 4 mg/dL (7-23) L Creatinine 0.9 mg/dL (0.7-1.2) Estimat Glomerular Filtration Rate > 60 mL/min (>60) Glucose Level 108 mg/dL (74-106) H Calcium Level 8.9 mg/dL (8.6-10.2) Height (Feet): 6 Height (Inches): 2.00 Weight (Pounds): 175 General Appearance: no apparent distress, alert Cardiovascular: normal rate Respiratory/Chest: normal breath sounds, no respiratory distress Abdominal Exam: soft Extremities: normal range of motion Tayler Carroll N.P. October 23, 2016 11:01
[2016-10-23 12:12] VITALS: BP 131/97
--- NOTE | 2016-10-23 15:13 | Pulmonology Progress Note ---
Assessment/Plan Problems: (1) Diverticulitis (2) Acute abdominal pain Assessment/Plan improved dc home with oral antibiotics Subjective ROS Limited/Unobtainable: No Constitutional: Reports: no symptoms HEENT: Repors: no symptoms Respiratory: Reports: no symptoms Allergies: Coded Allergies: BENZALKONIUM CHLORIDE (Verified Allergy, Unknown, 08/21/15) BIMATOPROST (Verified Allergy, Unknown, 08/21/15) TIMOLOL (Verified Allergy, Unknown, 08/21/15) TRAVOPROST (Verified Allergy, Unknown, 08/21/15) Uncoded Allergies: COMBZAN (Allergy, Unknown, 08/21/15) Objective Last 24 Hour Vital Signs Date Time Temp Pulse Resp B/P Pulse Ox O2 Delivery O2 Flow Rate FiO2 10/23/16 12:12 97.2 73 18 131/97 98 Room Air 10/23/16 08:08 98.1 77 20 128/80 99 Room Air 10/23/16 04:00 97.9 67 18 124/83 97 Room Air 10/23/16 00:00 97.2 68 18 119/75 99 Room Air 10/22/16 21:44 97.9 10/22/16 20:00 97.5 70 18 147/96 98 Room Air 10/22/16 16:00 97.9 84 18 131/79 98 Room Air Intake and Output 10/22/16 10/23/16 19:00 07:00 Intake Total 995.0 ml 1385.0 ml Balance 995.0 ml 1385.0 ml Intake Oral 360 ml 450 ml IV Total 635.0 ml 935.0 ml # Voids 3 3 # Bowel Movements 1 General Appearance: WD/WN HEENT: normocephalic, atraumatic Respiratory/Chest: chest wall non-tender, lungs clear Cardiovascular: normal peripheral pulses, normal rate Abdomen: normal bowel sounds, soft, non tender Extremities: no cyanosis Skin: no rash, no ulcers Laboratory Tests 10/23/16 06:05: White Blood Count 4.4L, Red Blood Count 3.94L, Hemoglobin 12.9L, Hematocrit 37.7L, Mean Corpuscular Volume 96, Mean Corpuscular Hemoglobin 32.8H, Mean Corpuscular Hemoglobin Concent 34.3, Red Cell Distribution Width 10.7L, Platelet Count 228, Mean Platelet Volume 6.8, Neutrophils (%) (Auto) 40.9L, Lymphocytes (%) (Auto) 38.5, Monocytes (%) (Auto) 13.4H, Eosinophils (%) (Auto) 6.1H, Basophils (%) (Auto) 1.2, Sodium Level 142, Potassium Level 3.5, Chloride Level 100, Carbon Dioxide Level 30, Anion Gap 12, Blood Urea Nitrogen 4L, Creatinine 0.9, Estimat Glomerular Filtration Rate > 60, Glucose Level 108H, Calcium Level 8.9 Current Medications Medications (Trade) Dose Ordered Sig/Julia Route PRN Reason Start Time Stop Time Status Last Admin Dose Admin Acetaminophen (Tylenol) 650 mg Q4H PRN ORAL Fever/Headache/Mild Pain 10/22/16 01:45 11/21/16 01:44 Al Hydroxide/Mg Hydroxide (Mylanta II) 30 ml Q6H PRN ORAL dyspepsia 10/20/16 21:45 11/19/16 21:44 Dextrose STAT PRN IV Hypoglycemia 10/20/16 21:45 11/19/16 21:44 Dextrose/Sodium Chloride (D5 0.45% NS) 1,000 ml @ 75 mls/hr [id number] IV 10/20/16 22:00 11/19/16 21:59 10/23/16 00:55 Diphenhydramine HCl (Benadryl) 25 mg Q6H PRN ORAL Itching/Pruritis 10/20/16 21:45 11/19/16 21:44 Heparin Sodium (Porcine) (Heparin 5000 units/ml) 5,000 units EVERY 12 HOURS SUBQ 10/21/16 22:00 11/20/16 21:59 10/23/16 09:00 Morphine Sulfate (Morphine Sulfate) 2 mg Q4H PRN IVP severe Pain (Pain Scale 7-10) 10/20/16 21:45 10/27/16 21:44 10/22/16 21:14 Nitroglycerin (Ntg) 0.4 mg Q5M X 3 DOSES PRN SL Prn Chest Pain 10/20/16 21:45 11/19/16 21:44 Ondansetron HCl (Zofran) 4 mg Q6H PRN IVP Nausea & Vomiting 10/20/16 21:45 11/19/16 21:44 Piperacillin Sod/ Tazobactam Sod/ Dextrose (Zosyn/D5W) 110 ml @ 27.5 mls/hr Q8HR@0200,1000,1800 IVPB 10/21/16 02:00 10/28/16 01:59 10/23/16 10:09 Polyethylene Glycol (Miralax) 17 gm HSPRN PRN ORAL Constipation 10/20/16 21:45 11/19/16 21:44 Temazepam (Restoril) 15 mg HSPRN PRN ORAL Insomnia 10/20/16 21:45 10/27/16 21:44 10/23/16 00:54 HILDA CRAFT October 23, 2016 15:13
[2016-10-23] MEDS ORDERED: NS 275ml ONE (15:49)
[2016-10-23] MEDS ORDERED: D5 1/2NS 1000ml IV ONE (15:49)
[2016-10-24] MEDS ORDERED: METRONIDAZOLE500 MG ORAL (13:43)
[2016-10-24] MEDS ORDERED: LEVAQUIN500 MG ORAL (13:43)
--- NOTE | 2016-10-24 13:49 | Discharge Summary ---
Discharge Summary Hospital Course Date of Admission October 20, 2016 at 19:50 Date of Discharge October 23, 2016 at 15:50 Admitting Diagnosis diverticulitis HPI Jalyn Gramajo is a 51 year old male who was admitted on October 20, 2016 at 19:50 for Diverticulitis Hospital Course dc summary #[id number] Discharge Medications New Medications: Levofloxacin* (Levaquin*) 500 Mg Tablet 500 MG ORAL DAILY, #7 TAB Metronidazole* (Flagyl*) 500 Mg Tablet 500 MG ORAL EVERY 8 HOURS for 7 Days, #21 TAB Continued Medications: Acetaminophen (Tylenol) 325 Mg Tablet 325 MG ORAL Q6H PRN for Prn Pain/Headache/Temp > 101, #30 TAB 0 Refills Discharge Condition Upon Discharge: stable Discharge Disposition Patient was discharged to Home () Discharge Diagnoses: Mauri (Opalshanelle)Saranya NP October 24, 2016 13:49
--- NOTE | 2016-10-24 23:02 | Discharge Summary 2 SIG ---
DATE OF ADMISSION: 10/20/2016 DATE OF DISCHARGE: 10/23/2016 REASON FOR ADMISSION: This 51 years old male presented to emergency room with lower abdominal pain for one day. Pain worse with cough and ambulation. Pain was described as cramping, colicky, 7/10 on a scale 1 to 10. The patient never before had this pain. The patient reported having constipation for one week. He denied nausea or vomiting. He denied blood in the stool. No black stool. No fevers. No chills. Workup in the emergency room revealed leukocytosis with white blood count of 13.6, stable hemoglobin and hematocrit, stable LFTs, stable electrolytes. CT of the abdomen and pelvis revealed findings compatible with acute diverticulitis of the sigmoid colon in the right lower quadrant. No evidence of associated obstruction, perforation, or abscess. No evidence of acute appendicitis. No other evidence of acute abdominal or pelvic disease. The patient was admitted for further management. ADMITTING DIAGNOSES: 1. Acute diverticulitis. 2. Abdominal pain. HOSPITAL COURSE: The patient admitted to medical/surgical floor. GI and ID consults were requested. The patient was started on empiric antibiotics. The patient was on the IV fluids. Initially NPO. GI seen and evaluated the patient. Started the patient on clear liquid diet as tolerated and advanced slowly. The patient was able to tolerate diet. Bowel regimen was instituted. The patient had bowel movement. ID optimized antibiotic regimen and cleared the patient for discharge on oral antibiotics to complete total 10 days course of antibiotics. Pain management provided. DVT prophylaxis provided. The patient was instructed on a low residue diet for first three weeks, when acute diverticulitis resolved start high-fiber diet for diverticular disease. Dietary recommendations along with printed materials provided to the patient by a licensed community cultural development officer . The patient to follow up with the GI doctor in eight weeks for outpatient colonoscopy. The patient was stable for discharge. DISCHARGE DIAGNOSES: acute diverticulitis abdominal pain constipation decreased hearing DISCHARGE MEDICATIONS: See medication reconciliation list. DISCHARGE INSTRUCTIONS: Follow up with primary medical doctor. Follow up with GI doctor in eight weeks for outpatient colonoscopy. Nazia Huber M.D. Saranya Dotson N.P. ([place]te[place]) DR: NATO JOB#: [id number] CC: ABILIO
== END 2016-10-23 15:50 | disposition home or self-care (01) | DRG 392 ==
LOC: EMR 18:30 → 4W 19:50 → EDBEDREQ 19:55
DX: K57.92 Diverticulitis of intestine, part unspecified, without perforation or abscess without bleeding (principal); H40.9 Unspecified glaucoma; Z88.8 Allergy status to other drugs, medicaments and biological substances; H91.92 Unspecified hearing loss, left ear; K59.00 Constipation, unspecified
CPT/HCPCS: 36415; 71010; 74177; 80048; 80053; 81003; 82150; 82248; 83690; 85025; 85610; 85730; 86850; 86900; 86901; 97802; J2405